=== PATIENT | female | born 1955 | race Caucasian/White ===

== ENCOUNTER → 2016-11-15 | Outpatient (CLI) | payer OTHER ==
--- NOTE | 2016-11-16 09:22 | DX ---
Right second finger History: Trauma, pain. Comparison: None. Findings: No acute fracture or dislocation identified. Bone density adjacent to the second distal int erphalangeal joint with well-corticated margins measuring 3 mm, probably representing old trauma. No definite acute fracture. Mild soft tissue swelling. Multilevel mild to moderate osteoarthritis involving the second through fourth distal interphalangeal joints with joint space narrowing and osteophytes. Cystic erosions involving the right first metacar pal head also likely degenerative. Impression: 1. Right second distal interphalangeal joint old trauma with 3 mm bone density. 2. No definite acute fracture.
== END ==
LOC: CIMAGING 16:48
PROVIDERS: ATTEND Family Medicine
DX: M79.644 Pain in right finger(s) (principal); M79.89 Other specified soft tissue disorders
CPT/HCPCS: 73140-PO

== ENCOUNTER → 2017-11-07 | Outpatient (CLI) | payer OTHER | LOC: CIMAGING 12:13 | PROVIDERS: ATTEND Family Medicine | DX: Z12.31 Encounter for screening mammogram for malignant neoplasm of breast (principal) ==

== ENCOUNTER → 2017-12-28 | Outpatient (CLI) | payer OTHER | LOC: CIMAGING 12:49 | PROVIDERS: ATTEND Family Medicine | DX: R92.8 Other abnormal and inconclusive findings on diagnostic imaging of breast (principal) | CPT/HCPCS: 76641-PO ==

== ENCOUNTER → 2018-02-28 | Outpatient (CLI) | payer OTHER | LOC: CIMAGING 12:10 | PROVIDERS: ATTEND Family Medicine | DX: M24.175 Other articular cartilage disorders, left foot (principal) | CPT/HCPCS: 73660-PO ==

== ENCOUNTER → 2019-04-08 | Outpatient (CLI) | payer OTHER | LOC: CIMAGING 16:31 ==